=== PATIENT | male | born 1980 | race African-American/Black ===

== ENCOUNTER 2019-01-10 04:32 | Emergency (ER) | payer SELFPAY ==
[~2019-01-10] VITALS: Ht 175.3 cm; Wt 83.9 kg
--- NOTE | 2019-01-10 04:55 | NUR ---
Pt BIBSELF FROM HOME C/O RECTAL PAIN & TENDERNESS DURING BM FOR THE PAST 4 DAYS. Pt IS A/OX4, VERBAL, ABLE TO MAKE NEEDS KNOWN. Pt WAITING IN ER BED 3 COMFORTALBY. Pt ALREADY SEEN BY MD AT BEDSIDE. WILL CARRY OUT MD ORDERS. WILL CONTINUE TO MONITOR Pt.
--- NOTE | 2019-01-10 05:50 | NUR ---
CHLAMYDIA RECTAL SWAB COLLECTED. CALLED LAB FOR [employer]ER
--- NOTE | 2019-01-10 06:09 | NUR ---
instructed pt to call back facility for results of the swab. pt gave verbal acknowledgement.
--- NOTE | 2019-01-10 06:11 | NUR ---
Patient discharged to home in stable condition. Written and verbal after care instructions given. Patient verbalizes understanding of instruction. Patient left facility on foot with steady gait. No s/s of acute distress or sob noted. No IV access. VS stable.
[2019-01-10 06:15] VITALS: BP 138/84
== END 2019-01-10 06:16 | disposition home or self-care (01) ==
LOC: ER 04:37
DX: K64.9 Unspecified hemorrhoids (principal); K60.2 Anal fissure, unspecified; F17.200 Nicotine dependence, unspecified, uncomplicated

== ENCOUNTER 2019-01-15 09:23 | Emergency (ER) ==
[~2019-01-15] VITALS: Ht 175.3 cm; Wt 83.9 kg
[2019-01-15 09:34] VITALS: BP 146/77
== END 2019-01-15 09:54 | disposition home or self-care (01) ==
LOC: ER 09:25
DX: A74.9 Chlamydial infection, unspecified (principal); F17.200 Nicotine dependence, unspecified, uncomplicated; Z60.2 Problems related to living alone